=== PATIENT | female | born 1985 | race Asian ===

== ENCOUNTER 2019-07-10 09:51 | Emergency (ER) | payer MEDICAID ==
[~2019-07-10] VITALS: Ht 152.4 cm; Wt 59.0 kg
[2019-07-10] MEDS ORDERED: SODIUM CHLORIDE 0.9% 1,000 ML IV ONE ×2 (11:10→16:51)
[2019-07-10] MEDS ORDERED: MORPHINE SULFATE 4 MG/ML CPJ (NOT FOR IM USE) IV STA ×2 (11:15→13:46)
[2019-07-10] MEDS ORDERED: ONDANSETRON HCL 4MG/2ML INJ IV STA ×2 (11:15→13:46)
[2019-07-10 11:45] LABS: BASOPHILS % 0.3 % (0.0-2.0); EOSINOPHILS % 0.1 % (0.0-5.0); HEMATOCRIT. 41.5 % (36.0-48.0); HEMOGLOBIN. 13.9 g/dL (12.0-16.0); LYMPHOCYTES % 10.8 % (20.0-50.0); MEAN CORPUSCULAR VOLUME 89.5 fL (81.0-99.0); MONOCYTES % 4.6 % (2.0-8.0); NEUTROPHILS % 84.2 % (40.0-76.0); PLATELET 271 x1000/uL (130-400); RED BLOOD CELL COUNT 4.64 mill/uL (4.2-5.4); RED CELL DISTRIBUTION WIDTH 13.4 % (11.6-14.6)
[2019-07-10 11:50] LABS: PROTHROMBIN TIME 10.8 sec (9.6-11.0)
[2019-07-10 11:52] LABS: CHLORIDE 107 mEq/L (98-107)
[2019-07-10 13:50] LABS: HCG SCREEN NEGATIVE
[2019-07-10] MEDS ORDERED: IOHEXOL-300 100 ML BOTTLE ONE (14:50)
[2019-07-10] MEDS ORDERED: HYDROCODONE/ACETAMINOPHEN 5/325MG TABLET PO ONE (15:15)
[2019-07-10] MEDS ORDERED: ONDANSETRON 4MG ODT PO STA (16:51)
[2019-07-10] MEDS ORDERED: ACETAMINOPHEN WITH CODEINE 300/30MG TABLET PO STA (16:51)
[2019-07-10 18:42] VITALS: BP 114/70
== END 2019-07-10 18:44 | disposition home or self-care (01) ==
LOC: ER 09:51
DX: S09.8XXA Other specified injuries of head, initial encounter (principal); S27.321A Contusion of lung, unilateral, initial encounter; S20.211A Contusion of right front wall of thorax, initial encounter; R55 Syncope and collapse; M54.5 Low back pain; M54.2 Cervicalgia; M25.562 Pain in left knee; M25.572 Pain in left ankle and joints of left foot; M25.571 Pain in right ankle and joints of right foot; M25.512 Pain in left shoulder; G89.11 Acute pain due to trauma; J98.11 Atelectasis; N83.201 Unspecified ovarian cyst, right side; V49.40XA Driver injured in collision with unspecified motor vehicles in traffic accident, initial encounter; W22.11XA Striking against or struck by driver side automobile airbag, initial encounter; Y93.89 Activity, other specified; Y92.410 Unspecified street and highway as the place of occurrence of the external cause; Z97.5 Presence of (intrauterine) contraceptive device
CPT/HCPCS: 36415; 70450; 71045; 71260; 72125; 73560; 73610; 74177; 80053; 84702; 84703; 85025; 85610; 96361; 96374; 96375; 96376; 99285; J2270; J2405; J7030; Q0162; Q9967